=== PATIENT | male | born 1985 | race Caucasian/White ===

== ENCOUNTER → 2021-12-29 | Outpatient (CLI) | payer BC ==
--- NOTE | 2021-12-29 16:16 | MR ---
EXAMINATION TYPE: MR shoulder RT wo con DATE OF EXAM: 12/29/2021 COMPARISON: None HISTORY: Rt shoulder pain Multiplanar multiecho imaging of the right shoulder with no contrast. The subscapularis tendon is intact. Biceps tendon is intact. The glenoid latoya appear intact. There i s thickening and increased signal in the supraspinatus tendon over the top of the humeral head. There is no retraction. There is full-thickness tear of the supraspinatus tendon posteriorly. The infraspi natus tendon is intact. There are small shoulder joint effusion. No fracture seen. The humeral head i s intact. The AC joint is intact. No subacromial impingement. IMPRESSION: Full-thickness tear of the supraspinatus tendon. No retraction. Small joint effusion.
== END | disposition home or self-care (01) ==
LOC: RADMRIMAIN 07:27
PROVIDERS: ATTEND Physician Assistant
DX: S46.911A Strain of unspecified muscle, fascia and tendon at shoulder and upper arm level, right arm, initial encounter (principal); X58.XXXA Exposure to other specified factors, initial encounter

== ENCOUNTER 2022-03-08 10:57 | Day surgery (SDC) | payer BC ==
[2022-03-06 15:02] VITALS: BMI 47.0
[~2022-03-08 10:57] MED LIST: LACTATED RINGERS 1,000 ML IV SCH
[2022-03-08 11:50] VITALS: TEMP 96.7
[2022-03-08] MEDS ORDERED: PROPOFOL 10 MG/ML 20 ML VIAL IV ONE (12:46)
--- NOTE | 2022-03-08 13:00 | P.PCN ---
Date of Procedure: 03/08/22 Procedure(s) Performed: BRIEF HISTORY: Patient is a 36-year-old pleasant male scheduled for an elective colonoscopy as a part of evaluation of chronic diarrhea for the last 5 years duration. He has bowel movements anywhere from 8-10 a day which are loose to watery in consistency but no blood or mucus in the stool. PROCEDURE PERFORMED: Colonoscopy with random biopsies. PREOPERATIVE DIAGNOSIS: Chronic diarrhea of several years duration. IV sedation per Anesthesia. PROCEDURE: After informed consent was obtained, the patient, was brought into the endoscopy unit. IV sedation was administered by Anesthesia under continuous monitoring. Digital rectal examination was normal. Initially the Olympus CF-160 flexible video colonoscope was then inserted in the rectum, gradually advanced into the cecum without any difficulty. Careful examination was performed as the scope was gradually being withdrawn. Ileocecal valve and the appendiceal orifice were visualized and appeared normal. Prep was excellent. Terminal ileum was intubated and 20 cm of the terminal ileum was visualized and appeared normal Mucosa of the cecum, ascending colon, transverse colon, descending colon, sigmoid colon, and rectum appeared normal. Random biopsies were done from ascending and descending colon to rule out microscopic/collagenous colitis Retroflexion was performed in the rectum and no lesions were seen. The patient tolerated the procedure well. IMPRESSION: Normal-appearing colon from rectum to cecum with no evidence of colorectal neoplasia . RECOMMENDATIONS: Findings of this examination were discussed with the patient as well as his family. He was advised to follow with the biopsy results. He will continue with dicyclomine 10 mg 4 times daily. Follow up in office in one month..
[2022-03-08 13:24] VITALS: BP 118/82; PULSE 60; RESP 20
== END 2022-03-08 13:38 ==
LOC: ORWHC2ENDO 10:57
PROVIDERS: ATTEND Internal Medicine Gastroenterology
DX: R19.4 Change in bowel habit (principal); K52.9 Noninfective gastroenteritis and colitis, unspecified; E78.5 Hyperlipidemia, unspecified; I10 Essential (primary) hypertension; F17.210 Nicotine dependence, cigarettes, uncomplicated; F32.A Depression, unspecified; K21.9 Gastro-esophageal reflux disease without esophagitis; E66.01 Morbid (severe) obesity due to excess calories; Z79.890 Hormone replacement therapy; Z79.899 Other long term (current) drug therapy
CPT/HCPCS: 88305; 45380; J2704